=== PATIENT | female | born 1930 | race Caucasian/White ===

== ENCOUNTER 2017-02-16 20:20 | Inpatient (IN) | payer MEDICARE ==
[~2017-02-16] VITALS: Ht 165.1 cm; Wt 83.9 kg
[2017-02-16] MEDS ORDERED: LACTULOSE 20 G/30 ML LIQUID UDC PO ONE (21:30)
[2017-02-16] MEDS ORDERED: TRAMADOL HCL 50 MG TABLET PO PRN (21:30)
[2017-02-16] MEDS ORDERED: hydrALAZINE HCL 25 MG TABLET PO PRN (21:30)
[2017-02-16] MEDS ORDERED: BISACODYL 10 MG SUPP.RECT RC PRN (21:30)
[2017-02-16] MEDS: DILTIAZEM HCL CD 180 MG CAP.SR.24H PO SCH (22:27)
[2017-02-16] MEDS ORDERED: TRAMADOL HCL 50 MG TABLET ONE (22:30)
[2017-02-16] MEDS ORDERED: BISACODYL 10 MG SUPP.RECT RC ONE (22:30)
[2017-02-16] MEDS ORDERED: DILTIAZEM HCL CD 180 MG CAP.SR.24H PO ONE (22:31)
[2017-02-16 23:17] VITALS: BP 160/109
--- NOTE | 2017-02-17 04:39 | NUR ---
PATIENT RECEIVED FROM [facility] @ 1999 ON 02/16/17 VIA [employer]. AAOX4 VITAL SIGNS TAKE AND RECORDED. BP 160/109 HR 115 RESP 18 TEMP 98.7 94% RA. DR ROSS AWARE OF PATIENT'S ADMISSION. ADMITTED WITH DIAGNOSIS OF RIGHT LOWER EXTREMITY DVT. PATIENT ON XARELTO. LUNGS CLEAR. HAS HISTORY OF AFIB, HTN HYPOTHYROIDISM, CAD RIGHT COMMON ARTERY OCCLUSION.PATIENT ALSO HAS SURGERY ON 02/12 FOR A FEMORAL THROMBECTOMY ON 02/12/17. MEDS ORDERED BY DR ROSS, PATIENT WAS VERY CONSTIPATED, SAY SHE HASN'T MOVE HER BOWELS AFTER SURGERY. HAD FLEETS ENEMA PRIOR TO ADMISSIN. PATIENT HAVING A LOT OF PAIN. AND DISCOMFORT. LACTULOSE DULCOLAX SUPPOSITORY GIVEN, SMEARS OF BM NOTED. DISIMPACTED PATIENT OBTAINED LARGE AMOUNT OF BM NOTED. FELT MUCH BETTER. CARDIZEM GIVEN FOR BP. WILL RECHECK IT AGAIN.
[2017-02-17 06:30] VITALS: BP 113/65
--- NOTE | 2017-02-17 06:47 | NUR ---
BP rechecked 113/65 hr 69 resp 18 pulse ox 95% ra. minimal amount of bm noted this shift.
[2017-02-17] MEDS: THYROID 60 MG TABLET PO SCH ×2 (07:00→09:53)
[2017-02-17] MEDS: CARVEDILOL 25 MG TABLET PO SCH ×2 (08:00→17:05)
[2017-02-17] MEDS: DILTIAZEM HCL CD 180 MG CAP.SR.24H PO SCH (09:00)
[2017-02-17] MEDS: RIVAROXABAN 15 MG TABLET PO SCH (17:00)
[2017-02-17 20:00] VITALS: BP 113/81
--- NOTE | 2017-02-17 20:00 | NUR ---
Received pt on bed alert and oriented x3. Family at bedside during this time. No acute distress noted. No complaints of pain or discomfort. Breathing even and unlabored with normal respirations. Vital signs stable. Kept clean, dry and comfortable. Call light within reach. All needs attended.
--- NOTE | 2017-02-18 06:10 | NUR ---
Pt slept well throughout the shift. No acute distress noted. No complaints of pain. Kept clean, dry and comfortable. All needs attended.
[2017-02-18 07:35] VITALS: BP 129/81
[2017-02-18] MEDS: DILTIAZEM HCL CD 180 MG CAP.SR.24H PO SCH (10:12)
[2017-02-18] MEDS: CARVEDILOL 25 MG TABLET PO SCH ×2 (10:13→18:09)
--- NOTE | 2017-02-18 11:46 | NUR ---
DAILY NOTE DRSG CHANGED TO R INNER THIGH OLD DRAIN SITE. INCISION ED INTACT. AREA CLEAN AND DRY OPEN TO AIR. NO S/S OF INFECTION NOTED. APPT FOR MD LANTIGUA SCHEDULED FOR 03/12/14 AT 1500 MD LANTIGUAS OFFICE. [id number]. CONFIRMED WITH [facility] Addendum: 02/24/17 at 0801 by Inés Rodriguez RN ACCORDING TO HER THE OFFICE CALLED HER DAUGHTER 02/18/17 AND THE APPT IS CONFIRMED WITH THE FAMILY AND SHE WILL GO ON THAT DATE
--- NOTE | 2017-02-18 13:04 | NUR ---
[employer] Network Engineer: MINOR met with pt, , and daughter at bedside to assess for needs and provide support. Pt is an 86-year-old female admitted to ARU for DVT. While in ARU pt will comply to rehab goals in order to strengthen functional decline and impaired ambulation. Pt presented in a calm and motivated mood during interview. When asked about his ARU admission pt stated "I had a blood clot in my leg that prevented me from walking." Pt is highly motivated to comply with rehab goals, and reported she is coping well. Per pt, she felt happy knowing that she is progressing in physical therapy and stated feels great. Per pt, she lives at home alone and is very independent. She reports to have a strong support system that includes her son and daughter. Per pt, she does not have any stairs in her apartment and onyl uses the elevator. She also reports to still drive and recentlly renewed her license in November. She reported own a cane and walker at home. Pt stated her goal is to "go home, feel strong, and feel good" MINOR engaged in active listening. SW provided emotional and supportive counseling. SW will continue to address issues of loss related to decline in ambulation. SW will provide linkage to community resources. SW will continue to be available as needed.
[2017-02-18] MEDS: RIVAROXABAN 15 MG TABLET PO SCH (17:36)
--- NOTE | 2017-02-18 18:13 | NUR ---
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 PT NOTIFIED OF RESULTS AND EXPLAINED WHAT IT MEANS AND WHY SHE IS ON ISOLATION AND WHAT PPE HER VISITORS WILL WEAR AND HER WHEN SHE IS OUT OF HER ROOM IN THERAPY. SHE VERBALIZE UNDERSTANDING ALSO EXPLAINED TO HER HE VERBALIZED UNDERSTANDING WELL
[2017-02-18] MEDS ORDERED: [UNRECOGNIZED DRUG - OTHER] PO (19:42)
[2017-02-18] MEDS ORDERED: RIVA10TA PO (19:42)
[2017-02-18] MEDS ORDERED: CARV25TA2 PO (19:42)
[2017-02-18] MEDS ORDERED: DILT120C2 PO (19:42)
[2017-02-18] MEDS ORDERED: THYR90TA PO (19:42)
--- NOTE | 2017-02-18 20:00 | NUR ---
Pt alert, awake and oriented x4. Able to make needs known. No s/s distress noted. Denies pain. Breathing even and unlabored with normal respirations. Assisted to the bathroom, tolerated well. Vital signs stable. Contact precaution observed. All needs attended.
[2017-02-18] MEDS: MUPIROCIN 2% OINT 22 GM TUBE NS SCH (21:40)
[2017-02-18 22:37] VITALS: BP 118/80
--- NOTE | 2017-02-19 06:06 | NUR ---
Pt slept well throughout the night. Denies pain. No apparent distress noted. No SOB noted. Assisted to the bathroom x2. Kept clean, dry and comfortable. Call light within reach. All needs attended
[2017-02-19] MEDS: THYROID 60 MG TABLET PO SCH (06:31)
[2017-02-19 07:22] VITALS: BP 149/95
--- NOTE | 2017-02-19 07:30 | NUR ---
Received pt in bed, a/o x4. No acute distress noted. HOB elevated. Call light and personal belongings within reach. Bed kept low/locked position. Plan of care discussed
[2017-02-19] MEDS: CARVEDILOL 25 MG TABLET PO SCH ×2 (08:15→17:28)
[2017-02-19] MEDS: DILTIAZEM HCL CD 180 MG CAP.SR.24H PO SCH (08:15)
[2017-02-19] MEDS: MUPIROCIN 2% OINT 22 GM TUBE NS SCH ×2 (08:16→21:02)
[2017-02-19] MEDS: RIVAROXABAN 15 MG TABLET PO SCH (17:30)
--- NOTE | 2017-02-19 18:17 | NUR ---
Pt remains in bed, a/ox4, no acute distress noted. Family visiting at this time. Pt appears in good mood. Pt was able to participate with therapy. Call light within reach.
[2017-02-19 19:30] VITALS: BP 112/68
--- NOTE | 2017-02-19 19:30 | NUR ---
RECEIVED PATIENT FROM DAY SHIFT NURSE. SHIFT REPORT GIVEN AT BEDSIDE. PATIENT A/O X4, WITH NO SIGNS OF PAIN OR DISTRESS. PATIENT LYING IN BED COMFORTABLY. PERTINENT ASSESSMENTS DONE. CALL LIGHT PLACED WITHIN REACH OF PATIENT. WILL CONTINUE TO MONITOR PATIENT THROUGH OUT SHIFT.
[2017-02-20] MEDS: THYROID 60 MG TABLET PO SCH (06:22)
--- NOTE | 2017-02-20 06:55 | NUR ---
PATIENT SLEPT COMFORTABLY THROUGH OUT SHIFT. NO SIGNS OF PAIN OR DISTRESS. PATIENT STABLE THROUGH OUT SHIFT. MEDICATIONS ADMINISTERED ORDERED. ALL NEEDS ATTENDED TO.
[2017-02-20 07:35] VITALS: BP 148/97
[2017-02-20 07:39] LABS: BASOPHILS % (AUTO) 0.3 % (0.0-2.0); EOSINOPHILS # (AUTO) 0.4 K/uL (0.0-0.7); EOSINOPHILS % (AUTO) 4.3 % (0.0-7.0); HEMATOCRIT 32.9 % (37-47); HEMOGLOBIN 10.7 G/DL (12.0-16.0); LYMPHOCYTES # (AUTO) 1.1 K/UL (0.8-4.8); LYMPHOCYTES % (AUTO) 13.4 % (20.5-51.5); MEAN CORPUSCULAR HEMOGLOBIN 30.4 UUG (27.0-31.0); MEAN CORPUSCULAR HGB CONC 33 g/dL (32.0-37.0); MEAN CORPUSCULAR VOLUME 93.5 FL (81.0-99.0); MONOCYTES % (AUTO) 11.8 % (0.0-11.0); NEUTROPHILS # (AUTO) 5.8 K/UL (1.8-8.9); NEUTROPHILS % (AUTO) 70.2 % (38.5-71.5); PLATELET COUNT (AUTO) 233 K/UL (150-450); RED BLOOD CELL COUNT(AUTO) 3.52 MIL/UL (4.2-5.4); WHITE BLOOD COUNT (AUTO) 8.3 K/UL (4.0-11.2)
[2017-02-20 08:07] LABS: THYROID STIMULATING HORMONE 4.047 mIU/mL (0.358-3.740)
--- NOTE | 2017-02-20 08:12 | NUR ---
Received patient up in bed, awake, alert, verbally responsive, not in any form of acute distress. She denies any pain or discomfort at this time. Call light placed within reach. Reminded to use to call light for assistance with verbalized understanding.
[2017-02-20 08:24] LABS: ALANINE AMINOTRANSFERASE 14 U/L (14-59); ALKALINE PHOSPHATASE 43 U/L (50-136); ASPARTATE AMINOTRANSFERASE 13 U/L (15-37); BILIRUBIN,TOTAL 1.3 mg/dL (0.2-1.0); CARBON DIOXIDE 30 mmol/L (21-32); CHLORIDE 110 mmol/L (98-107); CHOLESTEROL 161 mg/dL (<200); CREATININE 1.1 mg/dL (0.6-1.3); GLUCOSE 97 mg/dL (74-106); HDL CHOLESTEROL 35 mg/dL (40-60); MAGNESIUM 2.4 mg/dL (1.8-2.4); PHOSPHOROUS 3.9 mg/dL (2.5-4.9); POTASSIUM 4.4 mmol/L (3.5-5.1); TOTAL PROTEIN, SERUM 6.1 g/dL (6.4-8.2); TRIGLYCERIDES 62 MG/DL (30-150); UREA NITROGEN, BLOOD 31 mg/dL (7-18)
[2017-02-20] MEDS: MUPIROCIN 2% OINT 22 GM TUBE NS SCH ×2 (09:22→20:58)
[2017-02-20] MEDS: CARVEDILOL 25 MG TABLET PO SCH ×2 (09:22→18:03)
[2017-02-20] MEDS: DILTIAZEM HCL CD 180 MG CAP.SR.24H PO SCH (09:23)
--- NOTE | 2017-02-20 13:52 | NUR ---
Interdisciplinary Meeting Summary
[2017-02-20] MEDS: RIVAROXABAN 15 MG TABLET PO SCH (18:04)
--- NOTE | 2017-02-20 19:30 | NUR ---
RECEIVED PATIENT FROM DAY SHIFT NURSE. PATIENT A/O X4 WITH NO SIGNS OF PAIN OR DISTRESS. PATIENT LYING COMFORTABLY ON BED. PERTINENT ASSESSMENTS DONE. ABLE TO MAKE NEEDS KNOWN. CALL LIGHT PLACED WITHIN REACH OF PATIENT. WILL CONTINUE TO MONITOR PATIENT THROUGH OUT SHIFT.
[2017-02-20 20:21] VITALS: BP 128/89
[2017-02-21] MEDS: THYROID 60 MG TABLET PO SCH (06:24)
--- NOTE | 2017-02-21 06:46 | NUR ---
PATIENT SLEPT COMFORTABLY THROUGH THE NIGHT. NO SIGNS OF PAIN OR DISCOMFORT. NO SOB. VITAL SIGNS WITHIN NORMAL RANGE DURING SHIFT. ALL NEEDS ATTENDED TO. ALL MEDS ADMINISTERED ORDERED. SHIFT REPORT TO BE GIVEN AT BEDSIDE TO DAY SHIFT NURSE.
--- NOTE | 2017-02-21 08:30 | NUR ---
PT REPORT RECEIVED AND BOARD UPDATED. PT COMFORTABLY RESTING IN BED. PT COMPLIANT WITH ROUTINE MORNING MEDICATION ADMINISTRATION. PT ASSESSED, V/S STABLE, NO S/S OF ACUTE DISTRESS OR PAIN NOTED AT THIS TIME. CALL LIGHT AND PERSONAL ITEMS WITHIN REACH. ALL SAFETY AND COMFORT MEASURES IN PLACE. WILL CONTINUE TO MONITOR.
[2017-02-21] MEDS: DILTIAZEM HCL CD 180 MG CAP.SR.24H PO SCH (09:50)
[2017-02-21] MEDS: CARVEDILOL 25 MG TABLET PO SCH ×2 (09:50→18:24)
[2017-02-21] MEDS: MUPIROCIN 2% OINT 22 GM TUBE NS SCH ×2 (09:51→21:24)
[2017-02-21 10:17] VITALS: BP 140/81
--- NOTE | 2017-02-21 16:12 | NUR ---
PT RESTING COMFORTABLY IN BED. V/S REASSESSED BP 140/82, 96 HR, AND 100% 02 ON RA. PT DENIES PAIN AND DIZZINESS AT THIS TIME. PLACED A CALL TO DR. LANTIGUA'S OFFICE REGARDING PT'S SCHEDULED F/U APPOINTMENT ON THE 03/12/17 AT 1300 PER PT AND FAMILY REQUEST TO INQUIRE FURTHER TO IF AN EARLIER DATE TO REMOVE SURGICAL ED COULD BE ARRANGED. RETURN CALL IS ANTICIPATED AND EXPECTED IN ORDER TO CONFIRM. WILL F/U.
[2017-02-21] MEDS: RIVAROXABAN 15 MG TABLET PO SCH (18:25)
--- NOTE | 2017-02-21 18:53 | NUR ---
PT SITTING COMFORTABLY IN BED. NO S/S OF DISTRESS NOTED AT THIS TIME. ALL COMFORT AND SAFETY MEASURES IN PLACE. CALL LIGHT AND PERSONAL ITEMS IN REACH. WILL CONTINUE TO MONITOR PT FOR ANY CHANGES AND ENDORSE STRAWHAT BLOCKING OPERATOR OF PT STATUS.
--- NOTE | 2017-02-21 20:00 | NUR ---
Received pt on bed awake, alert and oriented x4. Family member at bedside during this time. Pleasant and calm to care. No acute distress noted. Denies pain. Breathing even and unlabored with normal respirations. Vital signs stable. Contact precautions observed. All needs attended.
[2017-02-21 20:57] VITALS: BP 124/89
--- NOTE | 2017-02-22 05:43 | NUR ---
Patient slept well throughout the shift. Assisted to the bathroom, pt tolerated well. No complaints of pain or discomfort. All needs met.
[2017-02-22] MEDS: THYROID 60 MG TABLET PO SCH (06:21)
[2017-02-22 08:33] VITALS: BP 173/105
[2017-02-22] MEDS: DILTIAZEM HCL CD 180 MG CAP.SR.24H PO SCH (08:42)
[2017-02-22] MEDS: CARVEDILOL 25 MG TABLET PO SCH ×2 (08:42→17:43)
[2017-02-22] MEDS: MUPIROCIN 2% OINT 22 GM TUBE NS SCH ×2 (08:43→21:06)
--- NOTE | 2017-02-22 10:38 | NUR ---
pt seen on rounding. pt stable. compliants of no pain. pt on isolation. pt took meds as prescribed. pt had elevated temperature. pt given meds. withheld hydralazine to see if pt tolerates scheduled meds. witheld hydralazine for bp greater than 160.pt applied bactorban will continue to monitor.
[2017-02-22] MEDS: RIVAROXABAN 15 MG TABLET PO SCH (17:42)
--- NOTE | 2017-02-22 19:00 | NUR ---
Received pt sitting on the chair and watching TV. AAO x4. No signs of acute distress. No c/o pain. Cooperative. Contact isolation observed. Safety measures maintained. Call light within reach. Will continue to monitor.
[2017-02-22 20:00] VITALS: BP 156/86
[2017-02-22] MEDS: BENAZEPRIL HCL 10 MG TABLET PO SCH (23:47)
[2017-02-22] MEDS ORDERED: BENAZEPRIL HCL 10 MG TABLET ONE (23:50)
--- NOTE | 2017-02-23 05:47 | NUR ---
Patient slept intermittently at night. No acute distress noted. No c/o pain. Assisted to the restroom as needed. Uses walker to ambulate. All needs attended to promptly. Scheduled medications given on time. Contact isolation observed. Safety measures maintained. Call light within reach. Continue to monitor.
[2017-02-23] MEDS: THYROID 60 MG TABLET PO SCH (06:32)
--- NOTE | 2017-02-23 07:45 | NUR ---
PATIENT SITTING UP IN BED AND SMILING, NO COMPLAINTS OF PAIN, NO SIGNS OF DISTRESS, CALL LIGHT IN REACH, BED LOCKED AND IN LOWEST POSITION, REMAINS ON CONTACT ISOLATION FOR MRSA IN THE NARES
[2017-02-23] MEDS: CARVEDILOL 25 MG TABLET PO SCH ×2 (08:10→17:40)
[2017-02-23 08:22] VITALS: BP 149/93
[2017-02-23] MEDS ORDERED: FUROSEMIDE 20 MG TABLET PO ONE (08:45)
[2017-02-23] MEDS: MUPIROCIN 2% OINT 22 GM TUBE NS SCH (09:00)
[2017-02-23] MEDS: DILTIAZEM HCL CD 180 MG CAP.SR.24H PO SCH (09:00)
[2017-02-23] MEDS: BENAZEPRIL HCL 10 MG TABLET PO SCH ×2 (09:00→20:55)
--- NOTE | 2017-02-23 09:00 | NUR ---
DILTAIZEM AND BENAZEPRIL HELD FOR PATIENTS BLOOD PRESSURE OF 108/67, WILL RECHECK.
--- NOTE | 2017-02-23 12:33 | NUR ---
PATIENT REFUSED MD [facility] [place] NOTIFIED OF FINDINGS
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
[2017-02-23] MEDS: RIVAROXABAN 15 MG TABLET PO SCH (17:39)
--- NOTE | 2017-02-23 19:25 | NUR ---
Received pt laying in bed, resting. AAO x4. Vital signs WNL, except BP 144/96. No signs of acute distress. No c/o pain. Able to make needs known. Contact isolation observed. Safety measures maintained. Call light within reach. Will continue to monitor.
[2017-02-23 20:19] VITALS: BP 144/96
[2017-02-23] MEDS: ATORVASTATIN 10 MG TABLET PO SCH (20:55)
--- NOTE | 2017-02-24 06:09 | NUR ---
Patient slept intermittently t/o the night. Assisted pt to restroom using walker with minimal assist. Patient's son, Jaciel, visited at night and brought the patient alkaline water. No c/o pain. No acute distress noted. All needs attended. Contact precaution observed. Safety measures maintained. Call light within reach. Will give shift report to day shift RN. Continue to monitor.
[2017-02-24] MEDS: THYROID 60 MG TABLET PO SCH (06:31)
[2017-02-24 07:22] VITALS: BP 131/98
[2017-02-24] MEDS: CARVEDILOL 25 MG TABLET PO SCH ×2 (09:55→18:13)
[2017-02-24] MEDS: BENAZEPRIL HCL 10 MG TABLET PO SCH ×2 (09:55→21:28)
[2017-02-24] MEDS: DILTIAZEM HCL CD 180 MG CAP.SR.24H PO SCH (09:55)
[2017-02-24] MEDS: RIVAROXABAN 15 MG TABLET PO SCH (18:11)
--- NOTE | 2017-02-24 19:45 | NUR ---
RECEIVED PATIENT IN BED, ALERT ORIENTED, NO SOB, NO CHEST PAIN, NO COMPLAIN OF ANY PAIN, REMAIN ON CONTACT ISOLATION MRSA NARES, ASSISTED WITH TOILETING, KEPT CLEAN AND DRY, CALL LIGHT WITHIN REACH. CONT TO MONITOR.
[2017-02-24 20:20] VITALS: BP 111/76
[2017-02-24] MEDS: ATORVASTATIN 10 MG TABLET PO SCH (21:27)
--- NOTE | 2017-02-25 06:03 | NUR ---
Contact isolation maintained for MRSA on the nares. Needs attended. voiding well. needs attended. kept comfortable. right thigh luis BOYD. denies any pain nor any discomfort. will monitor patient.
[2017-02-25] MEDS: THYROID 60 MG TABLET PO SCH (06:30)
[2017-02-25 07:35] VITALS: BP 112/85
[2017-02-25] MEDS: BENAZEPRIL HCL 10 MG TABLET PO SCH ×2 (09:04→20:45)
[2017-02-25] MEDS: DILTIAZEM HCL CD 180 MG CAP.SR.24H PO SCH (09:04)
[2017-02-25] MEDS: CARVEDILOL 25 MG TABLET PO SCH ×2 (09:04→18:38)
--- NOTE | 2017-02-25 10:15 | NUR ---
pt seen on rounding. pt vitals stable. no signs of acute distress. pt continues to be alert and oriented. mrsa swab done to check if colonized. bp meds given as prescribed. pt particiapted in therapy. no ortho hypo noted. pt had bp on 140s. will continue to monitor pt.
[2017-02-25] MEDS: RIVAROXABAN 15 MG TABLET PO SCH (18:32)
--- NOTE | 2017-02-25 18:54 | NUR ---
pt vitals elevated throughout the day. pt is on xarelto given. no signs of acute distress. pt tolerated therapy with no pain reported. pt chest xray negative. no new wounds noted. will endorse to night shift manager nurse.
--- NOTE | 2017-02-25 19:30 | NUR ---
RECEIVED PATIENT FROM DAY SHIFT NURSE. SHIFT REPORT AT BEDSIDE. PATIENT LYING IN BED COMFORTABLY. INTRODUCED SELF TO PATIENT. ABLE TO MAKE NEEDS KNOWN. PERTINENT ASSESSMENTS DONE. CALL LIGHT PLACED WITHIN REACH OF PATIENT. WILL CONTINUE TO MONITOR PATIENT THROUGH SHIFT.
[2017-02-25 20:30] VITALS: BP 146/64
[2017-02-25] MEDS: ATORVASTATIN 10 MG TABLET PO SCH (20:44)
[2017-02-26] MEDS: THYROID 60 MG TABLET PO SCH (06:20)
--- NOTE | 2017-02-26 07:04 | NUR ---
PATIENT SLEPT COMFORTABLY THROUGH OUT THE SHIFT. NO SIGNS OF PAIN OR ACUTE DISCOMFORT. ALL NEEDS ATTENDED TO. MEDICATIONS ADMINISTERED ORDERED.
[2017-02-26] MEDS: CARVEDILOL 25 MG TABLET PO SCH ×2 (08:12→17:41)
[2017-02-26 08:26] VITALS: BP 143/85
[2017-02-26] MEDS: BENAZEPRIL HCL 10 MG TABLET PO SCH ×2 (09:34→20:19)
[2017-02-26] MEDS: DILTIAZEM HCL CD 180 MG CAP.SR.24H PO SCH (09:34)
--- NOTE | 2017-02-26 11:40 | NUR ---
Pt alert and oriented x4, sitting upright in bed comfortably finishing breakfast upon morning assessment. Pt denies any c/o pain or discomfort at this time. Pt compliant with all routine morning administration both at 8am and 9am. Pt eager to participate in PT and tolerated exercise and ambulation well. All safety and comfort measures in place. Will continue to monitor progress.
--- NOTE | 2017-02-26 15:38 | NUR ---
Pt MRSA nares sample collected and delivered to lab. Pt sitting comfortably up in bed, no distress noted at this time. Will continue to monitor and keep Pt informed.
[2017-02-26] MEDS: RIVAROXABAN 15 MG TABLET PO SCH (17:34)
--- NOTE | 2017-02-26 18:57 | NUR ---
Pt is sitting comfortably up in bed, no acute distress noted at this time. Pt participated and well tolerated all therapies today. Pt remains eager to comply with plan of care. V/S have remained stable on this shift. All medications routinely administered. All comfort and safety measures met at this time. Personal items and call light placed within reach. Will endorse to chemist proteins.
--- NOTE | 2017-02-26 19:30 | NUR ---
RECEIVED PATIENT FROM DAY SHIFT NURSE. REPORT GIVEN AT BEDSIDE. PATIENT A/O X4 WITH NO SIGNS OF PAIN OR ACUTE DISTRESS. PATIENT LYING IN BED COMFORTABLY. ABLE TO MAKE NEEDS KNOWN. PERTINENT ASSESSMENTS DONE. CALL LIGHT PLACED WITHIN REACH OF PATIENT. WILL CONTINUE TO MONITOR PATIENT THROUGH SHIFT.
[2017-02-26] MEDS: ATORVASTATIN 10 MG TABLET PO SCH (20:19)
[2017-02-26 20:52] VITALS: BP 141/82
--- NOTE | 2017-02-26 21:00 | NUR ---
RECEIVED PHONE CALL FROM DAUGHTER. DAUGHTER MINH STATED SHE WAS UPSET THAT THERE IS A PLAN TO D/C PT HOME TOMORROW MORNING. DAUGHTER DOES NOT WANT PT TO BE DISCHARGED UNTIL SATURDAY. INFORMED DAUGHTER THAT WE WILL FOLLOW UP WITH SLABBING MACHINE OPERATOR AND WEIGHTS AND MEASURES SEALER IN THE MORNING TO DISCUSS D/C PLAN. WILL ENDORSE TO DAY SHIFT NURSE.
[2017-02-27] MEDS: THYROID 60 MG TABLET PO SCH (06:30)
--- NOTE | 2017-02-27 06:47 | NUR ---
PT SLEPT WELL THROUGH OUT SHIFT. PT IN STABLE CONDITION WITH NO SIGNS OF PAIN, ACUTE DISTRESS, OR SOB. PT ABLE TO MAKE NEEDS KNOWN. SAFETY MEASURES MAINTAINED. MEDICATIONS ADMINISTERED ORDERED. CALL LIGHT WITHIN REACH. SHIFT REPORT TO BE GIVEN TO DAY SHIFT NURSE. WILL CONTINUE TO MONITOR PT.
--- NOTE | 2017-02-27 07:45 | NUR ---
Received patient awake, up on bed, alert, verbally responsive, coherent, not in any form of acute distress. No complain of pain or discomfort at this time. Assisted to her needs. Call light placed within reach.
[2017-02-27] MEDS: CARVEDILOL 25 MG TABLET PO SCH ×2 (08:20→18:29)
[2017-02-27] MEDS: BENAZEPRIL HCL 10 MG TABLET PO SCH ×2 (09:17→20:22)
[2017-02-27] MEDS: DILTIAZEM HCL CD 180 MG CAP.SR.24H PO SCH (09:17)
[2017-02-27 10:03] VITALS: BP 148/91
--- NOTE | 2017-02-27 14:37 | NUR ---
INTERDISCIPLINARY REHAB MEETING
[2017-02-27] MEDS: RIVAROXABAN 15 MG TABLET PO SCH (18:29)
--- NOTE | 2017-02-27 19:30 | NUR ---
Received patient laying in bed. Alert and verbally responsive. Able to make needs known. Denies any pain and discomfort. No acute distress. No SOB. Kept clean and dry. All needs attended to promptly. Call light within reach. Will continue to monitor.
[2017-02-27] MEDS: ATORVASTATIN 10 MG TABLET PO SCH (20:22)
[2017-02-27 20:54] VITALS: BP 162/93
--- NOTE | 2017-02-28 06:00 | NUR ---
Patient slept comfortably throughout the night. Continued on contact isolation for MRSA nares. All contact precautions taken. No c/o pain and discomfort. No acute distress. No SOB. Assisted to the bathroom. Tolerated well. All needs attended to promptly. Call light within reach. Will continue to monitor.
[2017-02-28] MEDS: THYROID 60 MG TABLET PO SCH (06:43)
--- NOTE | 2017-02-28 07:35 | NUR ---
Received patient awake, lying on bed with head of bed elevated above 30 degrees with no SOB, distress or discomforts noted. All needs attended and anticipated. call light within reach. Will continue to monitor.
[2017-02-28 08:00] VITALS: BP 167/106
[2017-02-28] MEDS: DILTIAZEM HCL CD 180 MG CAP.SR.24H PO SCH (08:35)
[2017-02-28] MEDS: CARVEDILOL 25 MG TABLET PO SCH ×2 (08:35→17:31)
[2017-02-28] MEDS: BENAZEPRIL HCL 10 MG TABLET PO SCH ×2 (08:36→20:42)
[2017-02-28] MEDS ORDERED: Z GUARD REMEDY PASTE 57 GM TUBE TOP PRN (14:15)
--- NOTE | 2017-02-28 14:20 | NUR ---
Upon doing rounds, noted patient doing physical therapy in the Rehab room with no SOB or discomforts noted. Will continue to monitor.
--- NOTE | 2017-02-28 14:58 | NUR ---
Patient came back from rehab in stable condition, no SOB, distress or any discomforts noted. All needs attended and anticipated. call light placed within reach.
[2017-02-28] MEDS: RIVAROXABAN 15 MG TABLET PO SCH (17:18)
--- NOTE | 2017-02-28 19:30 | NUR ---
Received patient laying in bed. Alert and verbally responsive. Able to make needs known. Denies any pain and discomfort. No acute distress. No SOB. Kept clean and dry. Assisted to bathroom with walker. Tolerated well. All needs attended to promptly. Call light within reach. will continue to monitor.
[2017-02-28] MEDS: ATORVASTATIN 10 MG TABLET PO SCH (20:42)
[2017-02-28 21:10] VITALS: BP 112/63
[2017-03-01] MEDS: THYROID 60 MG TABLET PO SCH (06:24)
--- NOTE | 2017-03-01 06:59 | NUR ---
Patient slept comfortably throughout the night. Alert and verbally responsive. Able to make needs known. No c/o pain and discomfort. No acute distress. No SOB. Assisted to the bathroom. Tolerated well. All needs attended to promptly. Call light within reach. Will continue to monitor.
[2017-03-01 07:00] VITALS: BP 146/91
--- NOTE | 2017-03-01 07:30 | NUR ---
Received patient awake, alert, verbally responsive, afebrile, not in any form of acute distress. No dyspnea, no complain of pain or discomfort at this time.
[2017-03-01 08:04] LABS: ALANINE AMINOTRANSFERASE 19 U/L (14-59); ALKALINE PHOSPHATASE 57 U/L (50-136); ASPARTATE AMINOTRANSFERASE 17 U/L (15-37); BILIRUBIN,TOTAL 1.5 mg/dL (0.2-1.0); CARBON DIOXIDE 26 mmol/L (21-32); CHLORIDE 110 mmol/L (98-107); GLUCOSE 89 mg/dL (74-106); MAGNESIUM 2.1 mg/dL (1.8-2.4); PHOSPHOROUS 3.9 mg/dL (2.5-4.9); POTASSIUM 4.4 mmol/L (3.5-5.1); TOTAL PROTEIN, SERUM 6.8 g/dL (6.4-8.2); UREA NITROGEN, BLOOD 22 mg/dL (7-18)
[2017-03-01 08:19] LABS: BASOPHILS # (AUTO) 0.1 K/uL (0.0-8.0); BASOPHILS % (AUTO) 0.7 % (0.0-2.0); EOSINOPHILS # (AUTO) 0.3 K/uL (0.0-0.7); EOSINOPHILS % (AUTO) 3.6 % (0.0-7.0); HEMATOCRIT 32.4 % (31.2-41.9); HEMOGLOBIN 11.2 g/dL (10.9-14.3); LYMPHOCYTES % (AUTO) 13.7 % (20.5-51.5); MEAN CORPUSCULAR HEMOGLOBIN 31.8 uug (24.7-32.8); MEAN CORPUSCULAR HGB CONC 35 g/dL (32.3-35.6); MEAN CORPUSCULAR VOLUME 92.1 fL (75.5-95.3); MONOCYTES # (AUTO) 0.7 K/uL (2.0-10.0); MONOCYTES % (AUTO) 9.6 % (0.0-11.0); NEUTROPHILS # (AUTO) 5.3 K/uL (1.8-8.9); NEUTROPHILS % (AUTO) 72.4 % (38.5-71.5); PLATELET COUNT (AUTO) 252 K/uL (179-408); RED BLOOD CELL COUNT(AUTO) 3.52 MIL/uL (3.63-4.92); WHITE BLOOD COUNT (AUTO) 7.3 K/uL (3.8-11.8)
[2017-03-01] MEDS: CARVEDILOL 25 MG TABLET PO SCH ×2 (08:47→17:14)
[2017-03-01] MEDS: BENAZEPRIL HCL 10 MG TABLET PO SCH ×2 (08:47→20:24)
[2017-03-01] MEDS: DILTIAZEM HCL CD 180 MG CAP.SR.24H PO SCH (08:48)
[2017-03-01] MEDS: RIVAROXABAN 15 MG TABLET PO SCH (17:08)
--- NOTE | 2017-03-01 19:30 | NUR ---
Received patient in bed. Alert and verbally responsive. Able to make needs known. Denies any pain and discomfort. No acute distress. No SOB. Kept clean and dry. All needs attended to promptly. Call light within reach. Will continue to monitor.
[2017-03-01] MEDS: ATORVASTATIN 10 MG TABLET PO SCH (20:23)
[2017-03-01 22:05] VITALS: BP 142/92
[2017-03-02] MEDS: THYROID 60 MG TABLET PO SCH (06:46)
[2017-03-02] MEDS: CARVEDILOL 25 MG TABLET PO SCH ×2 (07:51→17:32)
--- NOTE | 2017-03-02 07:56 | NUR ---
Pt report received near bedside. Pt assessed, no acute distress or SOB noted at this time. Pt denies any pain. V/S taken 152/101, pulse 81, 0800 am Coreg administered per MD orders. Will continue to monitor Pt status and V/S. Pt board updated.
[2017-03-02 08:43] VITALS: BP 152/101
[2017-03-02] MEDS: DILTIAZEM HCL CD 180 MG CAP.SR.24H PO SCH (09:06)
[2017-03-02] MEDS: BENAZEPRIL HCL 10 MG TABLET PO SCH ×2 (09:06→20:18)
[2017-03-02] MEDS: RIVAROXABAN 15 MG TABLET PO SCH (17:31)
--- NOTE | 2017-03-02 17:54 | NUR ---
Pt is sitting comfortably in semi-fowlers talking with family on the phone. Bed is in the lowest position with 2 rails up. Pt compliant with all routine medication administrations throughout this shift. Pt reports no c/o pain or discomfort, and remains with no s/s of infection at this time. Last bp was 123/74, with a pulse of 90. All comfort and safety measures in place. Will continue to monitor.
--- NOTE | 2017-03-02 19:45 | NUR ---
contacted [facility] for prescriptions. no response. contacted rico for prescriptions. rico responds that pt should be ok and follow up with dr gladys jones for medications. pt is being discharged without medications. instructed patient about follow up with pcp. pt verbalizes understanding to follow up with pcp within a week.
[2017-03-02 20:18] VITALS: BP 111/78
[2017-03-02] MEDS: ATORVASTATIN 10 MG TABLET PO SCH (20:18)
--- NOTE | 2017-03-02 22:34 | NUR ---
PT DISCHARGE COMPLETED BY CHIARA CARTER. NIGHT MEDICATIONS GIVEN. DISCHARGED TO HOME VIA SON IN LAW MEEK RIDLEY. LAST VS BP 111/78 HR 83 O2 SAT 94% ROOM AIR, RR 17, 0/10 PAIN. SAFETY MAINTAINED.
== END 2017-03-02 22:35 | disposition home health service (06) | DRG 300 ==
PROVIDERS: ADMIT Physical Medicine & Rehabilitation Pain Medicine; ATTEND Physical Medicine & Rehabilitation Pain Medicine
DX: I74.5 Embolism and thrombosis of iliac artery (principal); D68.59 Other primary thrombophilia; D68.51 Activated protein C resistance; I27.20 Pulmonary hypertension, unspecified; G93.89 Other specified disorders of brain; I50.32 Chronic diastolic (congestive) heart failure; J98.11 Atelectasis; I11.0 Hypertensive heart disease with heart failure; I65.23 Occlusion and stenosis of bilateral carotid arteries; I48.0 Paroxysmal atrial fibrillation; Z48.812 Encounter for surgical aftercare following surgery on the circulatory system; I73.9 Peripheral vascular disease, unspecified; I10 Essential (primary) hypertension; E03.9 Hypothyroidism, unspecified; E66.9 Obesity, unspecified; Z68.30 Body mass index [BMI] 30.0-30.9, adult; I25.10 Atherosclerotic heart disease of native coronary artery without angina pectoris; R20.0 Anesthesia of skin; R53.1 Weakness; Z87.440 Personal history of urinary (tract) infections; E78.5 Hyperlipidemia, unspecified; Z86.73 Personal history of transient ischemic attack (TIA), and cerebral infarction without residual deficits; I35.0 Nonrheumatic aortic (valve) stenosis; Z86.718 Personal history of other venous thrombosis and embolism; Z96.652 Presence of left artificial knee joint; Z96.643 Presence of artificial hip joint, bilateral
CPT/HCPCS: 36415; 71010; 83735; 84100; 84443; 85025; 92526; 92610; 97110; 97112; 97116; 97530; 97535; A4663